=== PATIENT | female | born 1945 | race Two or more races ===

== ENCOUNTER 2024-01-09 10:09 | Emergency (ER) | payer OTHER ==
[~2024-01-09] VITALS: Ht 154.9 cm; Wt 49.9 kg
[2024-01-09 10:29] VITALS: BP 167/83; O2SAT 97
[2024-01-09] MEDS ORDERED: LUMIGAN2.5 M1 OP (10:30)
[2024-01-09] MEDS ORDERED: ENALAPRIL MALE2.5 MG PO (10:31)
[2024-01-09 11:56] LABS: HEMATOCRIT 41.7 % (36.0-45.00); HEMOGLOBIN 14.2 g/dL (12.0-15.00); MEAN CELL VOLUME 88.9 fL (80.00-100.00); MEAN CORPUSCULAR HEMOGLOBIN 30.2 pg (27.00-32.0); PLATELET COUNT 347 K/uL (150-450); RED BLOOD COUNT 4.69 M/uL (4.00-6.00); RED CELL DISTRIBUTION WIDTH 13.5 % (11.5-14.5)
[2024-01-09 12:23] LABS: CALCIUM 9.4 mg/dL (8.5-10.1); CREATININE SERUM 0.71 mg/dL (0.55-1.02); GFR 79.2; POTASSIUM 3.83 mEq/L (3.5-5.1)
== END 2024-01-09 12:57 | disposition home or self-care (01) ==
LOC: ER 10:09
PROVIDERS: General Practice
DX: M25.562 Pain in left knee (principal)